=== PATIENT | male | born 1955 | race Caucasian/White ===

== ENCOUNTER 2023-05-03 09:42 | Inpatient (IN) | payer OTHER ==
[2023-05-03 11:20] LABS: #Basophils 0.1 thou/uL (0.0-0.2); #Eosinphils 0.2 thou/uL (0.0-0.7); #Monocytes 0.7 thou/uL (0.11-0.59); #Neutrophils 5.5 thou/uL (1.40-6.50); %Basophils 0.6 % (0.0-1.0); %Eosinophils 2.6 % (0.0-10.0); %Monocytes 9.2 % (0.0-10.0); %Neutrophils 68.2 % (42.0-75.0); Hematocrit 44.6 % (42.0-52.0); Hemoglobin 15.1 g/dL (14.0-18.0); Mean Corpuscular HGB CONC 33.9 g/dL (32.0-36.0); Mean Corpuscular Hemoglobin 29.5 pg (27.0-31.0); Mean Corpuscular Volume 87.1 fl (78.0-98.0); Mean Platelet Volume 10.8 fL (7.4-10.4); Platelet Count 183 10x3/uL (130-400); RBC Distribution Width 12.2 % (11.5-14.5); Red Blood Cell (RBC) Count 5.12 mill/uL (4.70-6.10); White Blood Cell (WBC) Count 8.1 10x3/uL (4.8-10.8)
[2023-05-03 11:45] LABS: ALT (SGPT) 15 U/L (8-55); AST (SGOT) 15 U/L (5-34); Albumin 4.3 g/dL (3.4-4.8); Alkaline Phosphatase 69 U/L (40-110); Anion Gap 13 mmol/L (10-20); BUN (Urea Nitrogen) 13 mg/dL (8.4-25.7); Bilirubin, Total 1.2 mg/dL (0.2-1.2); Calc. Creatinine Clearance 0 mL/min (70-130); Calcium 9.4 mg/dL (7.8-10.44); Carbon Dioxide 27 mmol/L (23-31); Chloride 98 mmol/L (98-107); Estimated GFR 66; Globulin 3.1 g/dL (2.4-3.5); Glucose 222 mg/dL (80-115); Potassium 4.3 mmol/L (3.5-5.1); Protein, Total 7.4 g/dL (5.8-8.1); Sodium 134 mmol/L (136-145)
[2023-05-03 11:54] LABS: Bilirubin Negative (Negative); Blood, Urine Negative (Negative); CAUTI Indications for Culture Dysuria,urgency,freq; Clarity Clear (Clear); Glucose, Urine (Dipstick) Normal (Negative); Ketone, Urine Negative (Negative); Leukocyte 250 Leu/uL (Negative); Nitrite Negative (Negative); Protein, Urine (Dipstick) Negative (Neg-Trace); RBC/HPF 0-3 HPF (0-3); Specific Gravity, Urine 1.007 (1.002-1.036); Squamous Epithelial 0-3 HPF (0-3); Urobilinogen Normal mg/dL (Less than 2)
[2023-05-03 11:56] LABS: Bacteria/HPF Rare-Few HPF (None Seen)
[2023-05-03 11:57] LABS: Urine Culture Reflex Yes Yes
[2023-05-03] MEDS ORDERED: cefTRIAXone (ROCEPHIN) 1 GM VIAL ONE (12:49)
[2023-05-03] MEDS ORDERED: Sodium Chloride 0.9% 100 ML ONE (12:50)
[2023-05-03] MEDS ORDERED: Acetaminophen 650 MG Suppository PR PRN (12:54)
[2023-05-03] MEDS ORDERED: Acetaminophen 325 MG TAB PO PRN (12:54)
[2023-05-03] MEDS ORDERED: Bisacodyl 5 MG TAB PO PRN (12:54)
[2023-05-03] MEDS ORDERED: Bisacodyl 10 MG SUPP PR PRN (12:54)
[2023-05-03] MEDS ORDERED: Calcium Carbonate 500 MG ChewTAB PO PRN (12:54)
[2023-05-03] MEDS ORDERED: Ondansetron PF 4 MG/2 ML Vial IVP PRN (12:54)
[2023-05-03] MEDS ORDERED: Senokot S 8.6-50 MG TAB PO PRN (12:54)
[2023-05-03] MEDS ORDERED: Guaifenesin DM 100-10/5 ML UDCUP PO PRN (12:54)
[2023-05-03] MEDS ORDERED: Ondansetron ODT 4 MG TAB PO PRN (12:54)
[2023-05-03] MEDS ORDERED: Iopamidol-370 76% 500 ML MDV (1 ML CHARGE) ONE (15:18)
[2023-05-03 15:25] VITALS: BMI 33.0
[2023-05-03 16:22] LABS: HBCM Index 0.06 S/CO (0-0.79); HBSAB Concentration Less than 8.00 mIU/mL; HBSAg Index 0.55 S/CO (0-0.99); Hep B Surf AB Non-Reactive (NonReactive); Hep B Surf Ag Non-Reactive S/CO (NonReactive); Hep C IgG Ab Non-Reactive S/CO (NonReactive); Hep C Index 0.08 S/CO (0-0.79); Hepatitis B Core IgM Abs Non-Reactive S/CO (NonReactive)
[2023-05-03 16:32] LABS: Hemoglobin A1c 6.9 % (4.0-6.0)
[2023-05-03 16:33] LABS: INR-International Normal Ratio 1.2; PTT 37.2 sec (22.9-36.1)
[2023-05-03] MEDS ORDERED: HumaLOG 300 UNITS/3 ML VIAL SC PRN (16:41)
[2023-05-03] MEDS ORDERED: Glucagon 1 MG/ML KIT IM PRN (16:41)
[2023-05-03] MEDS ORDERED: Dextrose 5% in Water 1,000 ML IV PRN (16:41)
[2023-05-03] MEDS ORDERED: Dextrose 50% Abboject 50 ML SYRINGE SLOW IVP PRN (16:41)
[2023-05-03 16:50] LABS: Cardiac Risk 4.8 (Less than 4.5); Cholesterol 126 mg/dl (< 200 Desired); HDL Cholesterol 26 mg/dL (>60 Neg Risk); LDL Cholesterol, Calculated 68 mg/dL; Magnesium 1.8 mg/dL (1.6-2.6); Phosphorus 3.7 mg/dL (2.3-4.7); Triglycerides 162 mg/dL (Less than 150)
[2023-05-03 17:07] LABS: HIV (1/2) Antibody/Antigen Non-Reactive (NonReactive); HIV 1/2 INDEX 0.18 S/CO (<1.00); Thyroid Stimulating Hormone 1.3739 uIU/mL (0.35-4.94)
[2023-05-03 17:26] LABS: SARS-CoV-2 NAA Rapid Test Not Detected (NotDetected)
[2023-05-03 18:19] LABS: Glucose 163 mg/dL (80-115)
[2023-05-03] MEDS: metFORMIN 500 MG TAB PO SCH (18:27)
[2023-05-03 19:11] LABS: Syphilis Antibody Nonreactive (Nonreactive); Syphilis Antibody Index 0.07 S/CO (<1.00 Non-Reactive)
[2023-05-03] MEDS: Atorvastatin Calcium 20 MG TAB PO SCH (21:09)
[2023-05-03 21:47] LABS: Glucose 175 mg/dL (80-115)
[2023-05-04 05:56] LABS: #Eosinphils 0.2 thou/uL (0.0-0.7); #Monocytes 0.9 thou/uL (0.11-0.59); #Neutrophils 5.2 thou/uL (1.40-6.50); %Basophils 0.4 % (0.0-1.0); %Eosinophils 2.2 % (0.0-10.0); %Lymphocytes 25.3 % (21.0-51.0); %Neutrophils 61.6 % (42.0-75.0); Hematocrit 40.1 % (42.0-52.0); Hemoglobin 13.6 g/dL (14.0-18.0); Mean Corpuscular HGB CONC 33.9 g/dL (32.0-36.0); Mean Corpuscular Hemoglobin 29.8 pg (27.0-31.0); Mean Corpuscular Volume 87.9 fl (78.0-98.0); Mean Platelet Volume 10.7 fL (7.4-10.4); Platelet Count 171 10x3/uL (130-400); RBC Distribution Width 12.2 % (11.5-14.5); Red Blood Cell (RBC) Count 4.56 mill/uL (4.70-6.10); White Blood Cell (WBC) Count 8.5 10x3/uL (4.8-10.8)
[2023-05-04 06:25] LABS: ALT (SGPT) 13 U/L (8-55); AST (SGOT) 12 U/L (5-34); Albumin 3.7 g/dL (3.4-4.8); Alkaline Phosphatase 62 U/L (40-110); Anion Gap 8 mmol/L (10-20); BUN (Urea Nitrogen) 18 mg/dL (8.4-25.7); Bilirubin, Total 0.6 mg/dL (0.2-1.2); Calc. Creatinine Clearance 88 mL/min (70-130); Calcium 8.6 mg/dL (7.8-10.44); Carbon Dioxide 29 mmol/L (23-31); Chloride 102 mmol/L (98-107); Estimated GFR 68; Globulin 2.6 g/dL (2.4-3.5); Glucose 197 mg/dL (80-115); Potassium 4.1 mmol/L (3.5-5.1); Protein, Total 6.3 g/dL (5.8-8.1); Sodium 135 mmol/L (136-145)
[2023-05-04 06:29] LABS: Glucose 197 mg/dL (80-115)
[2023-05-04] MEDS: Enoxaparin 40 MG (0.4 mL) SYRINGE SC SCH (08:39)
[2023-05-04] MEDS: Losartan 25 MG TAB PO SCH (08:39)
[2023-05-04] MEDS: Furosemide 40 MG TAB PO SCH (08:40)
[2023-05-04] MEDS: Spironolactone 25 MG TAB PO SCH (08:40)
[2023-05-04] MEDS: metFORMIN 500 MG TAB PO SCH ×2 (08:40→18:07)
[2023-05-04] MEDS ORDERED: FLU VACC QS2023(65UP)/MF59C/PF 60 MCG/0.5 ML SYRINGE IM ONE (09:00)
[2023-05-04] MEDS ORDERED: BENZOCAINE/MENTHOL/ZINC CHLOR 5.1 GM TUBE TOP PRN (09:04)
[2023-05-04 12:46] LABS: Glucose 176 mg/dL (80-115)
[2023-05-04] MEDS ORDERED: cefTRIAXone\\ROCEPHIN 1 GM in Sodium Chloride 0.9% 100 ML IVPB SCH (13:00)
[2023-05-04 17:32] LABS: Glucose 158 mg/dL (80-115)
[2023-05-04] MEDS: Atorvastatin Calcium 20 MG TAB PO SCH (19:48)
[2023-05-04 21:31] LABS: Glucose 185 mg/dL (80-115)
[2023-05-05 05:51] LABS: #Basophils 0.1 thou/uL (0.0-0.2); #Eosinphils 0.2 thou/uL (0.0-0.7); #Monocytes 0.8 thou/uL (0.11-0.59); #Neutrophils 6.2 thou/uL (1.40-6.50); %Basophils 0.5 % (0.0-1.0); %Eosinophils 2.3 % (0.0-10.0); %Lymphocytes 21.5 % (21.0-51.0); %Monocytes 8.5 % (0.0-10.0); %Neutrophils 65.9 % (42.0-75.0); Hematocrit 39.4 % (42.0-52.0); Hemoglobin 13.3 g/dL (14.0-18.0); Mean Corpuscular HGB CONC 33.8 g/dL (32.0-36.0); Mean Corpuscular Hemoglobin 29.6 pg (27.0-31.0); Mean Corpuscular Volume 87.6 fl (78.0-98.0); Mean Platelet Volume 10.7 fL (7.4-10.4); Platelet Count 175 10x3/uL (130-400); RBC Distribution Width 12.2 % (11.5-14.5); White Blood Cell (WBC) Count 9.4 10x3/uL (4.8-10.8)
[2023-05-05 06:17] LABS: ALT (SGPT) 14 U/L (8-55); AST (SGOT) 17 U/L (5-34); Albumin 3.5 g/dL (3.4-4.8); Alkaline Phosphatase 55 U/L (40-110); Anion Gap 8 mmol/L (10-20); BUN (Urea Nitrogen) 17 mg/dL (8.4-25.7); Bilirubin, Total 0.5 mg/dL (0.2-1.2); Calc. Creatinine Clearance 96 mL/min (70-130); Calcium 8.6 mg/dL (7.8-10.44); Carbon Dioxide 31 mmol/L (23-31); Chloride 102 mmol/L (98-107); Estimated GFR 76; Globulin 2.8 g/dL (2.4-3.5); Glucose 183 mg/dL (80-115); Potassium 4.2 mmol/L (3.5-5.1); Protein, Total 6.3 g/dL (5.8-8.1); Sodium 137 mmol/L (136-145)
[2023-05-05] MEDS: Spironolactone 25 MG TAB PO SCH (08:32)
[2023-05-05] MEDS: metFORMIN 500 MG TAB PO SCH ×2 (08:32→17:26)
[2023-05-05] MEDS: Furosemide 40 MG TAB PO SCH (08:32)
[2023-05-05] MEDS: Enoxaparin 40 MG (0.4 mL) SYRINGE SC SCH (08:32)
[2023-05-05] MEDS: Losartan 25 MG TAB PO SCH (08:32)
[2023-05-05] MEDS: Atorvastatin Calcium 20 MG TAB PO SCH (20:31)
[2023-05-05] MEDS: Ciprofloxacin 500 MG TAB PO SCH (20:31)
[2023-05-06] MEDS: Ciprofloxacin 500 MG TAB PO SCH (04:58)
[2023-05-06 06:02] LABS: #Eosinphils 0.3 thou/uL (0.0-0.7); #Monocytes 0.9 thou/uL (0.11-0.59); #Neutrophils 7.1 thou/uL (1.40-6.50); %Basophils 0.4 % (0.0-1.0); %Eosinophils 2.7 % (0.0-10.0); %Lymphocytes 17.2 % (21.0-51.0); %Monocytes 8.8 % (0.0-10.0); %Neutrophils 69.5 % (42.0-75.0); Hemoglobin 13.8 g/dL (14.0-18.0); Mean Corpuscular HGB CONC 33.7 g/dL (32.0-36.0); Mean Corpuscular Hemoglobin 29.6 pg (27.0-31.0); Mean Corpuscular Volume 87.8 fl (78.0-98.0); Mean Platelet Volume 10.5 fL (7.4-10.4); Platelet Count 184 10x3/uL (130-400); RBC Distribution Width 12.4 % (11.5-14.5); Red Blood Cell (RBC) Count 4.67 mill/uL (4.70-6.10); White Blood Cell (WBC) Count 10.2 10x3/uL (4.8-10.8)
[2023-05-06 06:28] LABS: ALT (SGPT) 15 U/L (8-55); AST (SGOT) 16 U/L (5-34); Albumin 3.7 g/dL (3.4-4.8); Alkaline Phosphatase 62 U/L (40-110); Anion Gap 12 mmol/L (10-20); BUN (Urea Nitrogen) 20 mg/dL (8.4-25.7); Calc. Creatinine Clearance 83 mL/min (70-130); Calcium 8.8 mg/dL (7.8-10.44); Carbon Dioxide 27 mmol/L (23-31); Chloride 102 mmol/L (98-107); Estimated GFR 64; Globulin 2.7 g/dL (2.4-3.5); Glucose 160 mg/dL (80-115); Protein, Total 6.4 g/dL (5.8-8.1); Sodium 137 mmol/L (136-145)
[2023-05-06 07:53] LABS: Glucose 161 mg/dL (80-115)
[2023-05-06] MEDS: metFORMIN 500 MG TAB PO SCH (08:25)
[2023-05-06] MEDS: Furosemide 40 MG TAB PO SCH (08:25)
[2023-05-06] MEDS: Spironolactone 25 MG TAB PO SCH (08:25)
[2023-05-06] MEDS: Losartan 25 MG TAB PO SCH (08:25)
[2023-05-06] MEDS: Enoxaparin 40 MG (0.4 mL) SYRINGE SC SCH (08:25)
[2023-05-06 12:07] VITALS: BP 106/64; TEMP 97.5
[2023-05-06 13:49] LABS: Glucose 134 mg/dL (80-115)
== END 2023-05-06 16:18 | disposition home or self-care (01) | DRG 813 ==
LOC: ERS 09:42 → ERHOLD 12:49 → T4-A 15:17 → OBSVTOIN 05-05 10:21
PROVIDERS: ADMIT Student in an Organized Health Care Education/Training Program; ATTEND Student in an Organized Health Care Education/Training Program
PROC: 0HBFXZX Excision of Right Hand Skin, External Approach, Diagnostic (ICD-10-PCS; principal; 2023-05-05)
DX: D69.2 Other nonthrombocytopenic purpura (principal); M31.9 Necrotizing vasculopathy, unspecified; E11.52 Type 2 diabetes mellitus with diabetic peripheral angiopathy with gangrene; E87.1 Hypo-osmolality and hyponatremia; N39.0 Urinary tract infection, site not specified; F03.90 Unspecified dementia, unspecified severity, without behavioral disturbance, psychotic disturbance, mood disturbance, and anxiety; K21.9 Gastro-esophageal reflux disease without esophagitis; I11.0 Hypertensive heart disease with heart failure; B96.89 Other specified bacterial agents as the cause of diseases classified elsewhere; I50.9 Heart failure, unspecified; Z96.612 Presence of left artificial shoulder joint; Z79.899 Other long term (current) drug therapy; Z98.890 Other specified postprocedural states; Z90.49 Acquired absence of other specified parts of digestive tract; Z80.42 Family history of malignant neoplasm of prostate; Z82.49 Family history of ischemic heart disease and other diseases of the circulatory system; Z83.3 Family history of diabetes mellitus; Z11.52 Encounter for screening for COVID-19; E11.65 Type 2 diabetes mellitus with hyperglycemia
CPT/HCPCS: 36415; 36416; 80053; 80061; 81001; 82947; 83036; 83735; 84100; 84443; 85025; 85384; 85610; 85730; 86140; 86705; 86706; 86780; 86803; 87077; 87086; 87186; 87340; 87389; 88305; 93005; 93306; 96372; 96374; 96376; 97139; G0378; J0696; J1650; J1815; J3490; Q9967